=== PATIENT | male | born 1955 | race Caucasian/White ===

== ENCOUNTER 2017-04-20 07:47 | Day surgery (SDC) | payer OTHER ==
[~2017-04-20] VITALS: Ht 177.8 cm; Wt 105.2 kg
[~2017-04-20 07:47] MED LIST: ASPIR-LOW81 MG PO; CLARITIN-D 121 EACH PO; PRILOSEC OTC20 MG PO
--- NOTE | 2017-04-20 10:27 | NUR ---
04/20/17 1027 Mervat Benavidez 0929 PT ARRIVED FROM [facility] NS.PORFIRIO
--- NOTE | 2017-04-21 13:58 | OR ---
[facility] [address], [place] [address] Signed DATE OF OPERATION: 04/20/2017 SURGEON: Maxx Nielson MD PREOPERATIVE DIAGNOSES: 1. Hiatal hernia. 2. Gastroesophageal reflux disease. 3. Mild gastritis. 4. Screening. 5. Hyperplastic rectal polyp, 2005. POSTOPERATIVE DIAGNOSES: 1. Tiny hiatal hernia. 2. Mild diffuse gastritis. 3. Minimal sigmoid diverticulosis. 4. Minimal to moderate external hemorrhoids. PROCEDURES: 1. EGD with CLOtest and biopsies of the antrum. 2. Colonoscopy without biopsy. ESTIMATED BLOOD LOSS: None. INDICATIONS: Ben is a 61-year-old gentleman, who asked to see me for both upper and lower endoscopy. In 2005, he described having acid reflux his whole life. He uses Prilosec with good results. When he tried an H2 hellen, it did not work. He had a small hiatal hernia back in 2005 with some mild gastritis. Also, his colonoscopy at that time showed a tiny hyperplastic polyp in the rectum. There is no family history of colon cancer or polyps. He has lower GI complaints. I met with Ben in the office and I gave him pamphlets on both upper and lower endoscopy. We looked at those together along with the risks including, but not limited to, gas bloating, crampy abdominal pain, bleeding, perforation, requiring surgery, and missed diagnosis. He also understands the need for IV conscious sedation. He expressed understanding and wished to proceed. PROCEDURE NOTE: Ben was taken into our endoscopy suite and placed in the supine semi-recumbent position. He was given divided doses of 8 mg of Versed and 125 mcg of fentanyl to cover both cases. The posterior oropharynx was anesthetized with Hurricaine spray. A bite Electronically Signed By: MAXX NIELSON MD 04/21/17 1358 PATIENT NAME: BEN SIMEON OPERATIVE REPORT DATE OF : 51 PHYSICIAN: MAXX NIELSON MD REPORT #: [id number] REPORT IS CONFIDENTIAL AND NOT TO BE RELEASED WITHOUT AUTHORIZATION [facility] [address], [place] [address] Signed block was utilized for the case. The adult gastroscope was introduced and advanced all the way out into the third portion of the duodenum under direct visualization of camera without difficulty. The duodenum and pyloric channel were unremarkable. Again, he has very mild superficial diffuse gastritis. I think lot of that is from his coffee, some of that may be from the aspirin. Upon retroflexion of the scope, he probably has just a tiny hiatal hernia. No gastric or esophageal varices. The scope was withdrawn up through the area of the GE junction, which was compliant without stricture. The Z-line has very minimal disruption. There was no Banda's mucosa, no distal esophagitis. The middle and upper esophagus were unremarkable. After this, the gas was suctioned out and the gastroscope removed. Ben tolerated the procedure quite well. Ben was then rotated into the left lateral decubitus position. He was maintained on IV sedation with Versed and fentanyl. A digital rectal exam was performed and he does have the induration to the prostate. The adult colonoscope was introduced and he does have minimal to moderate external hemorrhoids. The scope was then advanced up to the cecum without difficulty. His prep was good. The scope was then slowly withdrawn. We saw just a few diverticula in the sigmoid colon. They were minimal to moderate in size, minimal in number and scattered about. The rectum was unremarkable. Upon retroflexion of the scope, there was no additional pathology noted above the anal canal. After this, the gas was suctioned out and the colonoscope removed. Ben tolerated the procedure quite well. RECOMMENDATIONS: I will see Ben back in my office in 7 to 14 days to review his results. Maxx Nielson MD ALB/MODL /[id number] cc: Naeem Hinton MD Electronically Signed By: MAXX NIELSON MD 04/21/17 1358 PATIENT NAME: BEN SIMEON OPERATIVE REPORT DATE OF : 51 PHYSICIAN: MAXX NIELSON MD REPORT #: [id number] REPORT IS CONFIDENTIAL AND NOT TO BE RELEASED WITHOUT AUTHORIZATION
== END 2017-04-20 10:18 | disposition home or self-care (01) ==
LOC: OPS 07:47 → DS 07:47 → OPS 09:15
PROVIDERS: Colon & Rectal Surgery
PROC: 0DJD8ZZ Inspection of Lower Intestinal Tract, Via Natural or Artificial Opening Endoscopic (ICD-10-PCS; principal; 2017-04-20 09:15)
PROC: 0DB68ZX Excision of Stomach, Via Natural or Artificial Opening Endoscopic, Diagnostic (ICD-10-PCS; 2017-04-20 09:15)
DX: Z12.11 Encounter for screening for malignant neoplasm of colon (principal); K64.4 Residual hemorrhoidal skin tags; K31.9 Disease of stomach and duodenum, unspecified; K44.9 Diaphragmatic hernia without obstruction or gangrene; K21.9 Gastro-esophageal reflux disease without esophagitis; K57.30 Diverticulosis of large intestine without perforation or abscess without bleeding; I10 Essential (primary) hypertension; N40.1 Benign prostatic hyperplasia with lower urinary tract symptoms; N13.8 Other obstructive and reflux uropathy; E78.5 Hyperlipidemia, unspecified; E55.9 Vitamin D deficiency, unspecified; E66.9 Obesity, unspecified; Z98.890 Other specified postprocedural states; Z86.010 Personal history of colon polyps; Z79.82 Long term (current) use of aspirin; Z79.899 Other long term (current) drug therapy; Z68.33 Body mass index [BMI] 33.0-33.9, adult
CPT/HCPCS: 86677; 99153; G0500; J2250; J3010; J7120

== ENCOUNTER 2021-11-18 17:35 | Emergency (ER) | payer MEDICARE, BC ==
[~2021-11-18] VITALS: Ht 177.8 cm; Wt 102.9 kg
[2021-11-18] MEDS ORDERED: HYDROCODON-ACE1 EA10 PO (20:10)
[2021-11-18] MEDS ORDERED: CEPHALEXIN500 M1 PO (20:10)
== END 2021-11-18 20:46 | disposition home or self-care (01) ==
LOC: ED 17:35
DX: S62.521A Displaced fracture of distal phalanx of right thumb, initial encounter for closed fracture (principal); S62.632A Displaced fracture of distal phalanx of right middle finger, initial encounter for closed fracture; S62.634A Displaced fracture of distal phalanx of right ring finger, initial encounter for closed fracture; S62.636A Displaced fracture of distal phalanx of right little finger, initial encounter for closed fracture; Z23 Encounter for immunization; Z87.891 Personal history of nicotine dependence; W27.0XXA Contact with workbench tool, initial encounter
CPT/HCPCS: 73130; 90471; 90715; 96372; 99283-25; A9270; J1170